=== PATIENT | male | born 2000 | race African-American/Black ===

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

== ENCOUNTER 2021-03-09 17:12 | Emergency (ER) | payer MEDICAID ==
[~2021-03-09] VITALS: Ht 190.5 cm; Wt 83.9 kg
[2021-03-09 17:42] VITALS: BP 146/99
== END 2021-03-09 17:43 ==
LOC: M.ERS 17:12
DX: M79.602 Pain in left arm (principal); Z88.5 Allergy status to narcotic agent

== ENCOUNTER 2021-03-29 22:54 | Emergency (ER) | payer MEDICAID ==
[~2021-03-29] VITALS: Ht 190.5 cm; Wt 85.7 kg
[2021-03-30 00:58] VITALS: BP 167/97
== END 2021-03-30 00:55 | disposition short-term general hospital (02) ==
LOC: M.ERS 22:54
DX: S02.609A Fracture of mandible, unspecified, initial encounter for closed fracture (principal); F17.210 Nicotine dependence, cigarettes, uncomplicated; Z88.5 Allergy status to narcotic agent; Z20.822 Contact with and (suspected) exposure to COVID-19; W50.0XXA Accidental hit or strike by another person, initial encounter; Y93.89 Activity, other specified; Y92.89 Other specified places as the place of occurrence of the external cause; Y99.8 Other external cause status

== ENCOUNTER 2021-06-23 01:11 | Emergency (ER) | payer MEDICAID ==
[~2021-06-23] VITALS: Ht 190.5 cm; Wt 85.7 kg
[2021-06-23] MEDS ORDERED: IBUPROFEN 600600 M1 PO (01:27)
[2021-06-23] MEDS ORDERED: MORPHINE SULFAT15 M3 PO (01:28)
[2021-06-23] MEDS ORDERED: SENNA PLUS TAB1 EACH PO (01:28)
[2021-06-23] MEDS ORDERED: TRAMADOL 50 MG50 MG PO (01:28)
[2021-06-23 03:12] VITALS: BP 152/89
== END 2021-06-23 03:31 | disposition home or self-care (01) ==
LOC: M.ERS 01:11
DX: U07.1 COVID-19 (principal); R68.84 Jaw pain; K08.89 Other specified disorders of teeth and supporting structures; F17.210 Nicotine dependence, cigarettes, uncomplicated; Z79.899 Other long term (current) drug therapy; Z88.6 Allergy status to analgesic agent